=== PATIENT | male | born 1960 | race Caucasian/White ===

== ENCOUNTER 2023-04-29 09:17 | Day surgery (SDC) | payer OTHER, SELFPAY ==
--- NOTE | 2023-04-29 | PATH_ITS ---
[facility] Accession Number: [id number] No. of containers..05 Tissue . 01 Material submitted: . PART A: duodenum - DUODENAL BIOPSY PART B: esophagus - ESOPHAGEAL BIOPSY PART C: colon - RIGHT COLON PART D: colon - TRANSVERSE COLON PART E: colon - LEFT COLON . 01 Diagnosis: A. Duodenum, Biopsy: Duodenal mucosa with no diagnostic abnormality. Negative for active inflammation, features of sprue, dysplasia, or malignancy. . B. Esophagus, Biopsy: Squamcolumnar junctional mucosa with chronic active inflammation, consistent with reflux esophagitis. Negative for intestinal metaplasia by alcian blue stain. Negative for dysplasia and malignancy. . C. Right Colon, Biopsy: Colonic mucosa with no diagnostic abnormality. Negative for active, chronic, and microscopic colitis. Negative for dysplasia and malignancy. . D. Transverse Colon, Biopsy: Minimally active colitis. Negative for granulomas, dysplasia, and malignancy. . E. Left Colon, Biopsy: Mild distortion of the crypt architecture without active inflammation. Negative for granulomas, dysplasia, and malignancy. . . . [facility] 05/07/2023 1615 Local . 01 Comment: C-E. The morphologic appearance could be compatible with the provided clinical history of ulcerative colitis if infection and medication-related mucosal injury are excluded. . . 01 Electronically signed: . Laurie Dominguez MD, Pathologist NPI- [id number] . 01 Gross description: . Part A: DUODENAL BIOPSY: Received in formalin are 2 fragment(s) of mcmahan, soft tissue measuring 0.1 x 0.1 x 0.1 cm to 0.3 x 0.3 x 0.2 cm submitted entirely in 1 cassette(s) Part B: ESOPHAGEAL BIOPSY: Received in formalin are 1 fragment(s) of mcmahan, soft tissue measuring 0.1 x 0.1 x 0.1 cm to 0.3 x 0.3 x 0.2 cm submitted entirely in 1 cassette(s) Part C: RIGHT COLON: Received in formalin are 2 fragment(s) of mcmahan, soft tissue measuring 0.1 x 0.1 x 0.1 cm to 0.5 x 0.2 x 0.2 cm submitted entirely in 1 cassette(s) Part D: TRANSVERSE COLON: Received in formalin are multiple fragment(s) of mcmahan, soft tissue measuring 0.1 x 0.1 x 0.1 cm to 0.3 x 0.2 x 0.2 cm submitted entirely in 1 cassette(s) Part E: LEFT COLON: Received in formalin are multiple fragment(s) of mcmahan, soft tissue measuring 0.1 x 0.1 x 0.1 cm to 0.4 x 0.2 x 0.2 cm submitted entirely in 1 cassette(s) /JEREMY 05/04/2023 2304 Local . 01 Microscopic: . B. An AB/PAS stain is performed to evaluate for intestinal metaplasia and is negative. The control stain showed appropriate reactivity. . 01 Pathologist provided ICD-10: K50.10, R10.13 . 01 CPT . 444943, 407219, 571236, 905317, 111163, 070639 Specimen Comment: A courtesy copy of this report has been sent to [phone] Performed at: 01 [facility] [address] [place] [address], [place], [place] [id number] MD Blue Goodwin MD Phone: [phone]
[2023-04-29 09:40] VITALS: BMI 29.5
[2023-04-29 09:51] VITALS: BP 141/86; PULSE 71; RESP 12; TEMP 36.3; O2SAT 97
[2023-04-29] MEDS: LACTATED RINGERS 1,000 ML 42 ML IV (09:59)
[2023-04-29 10:19] LABS: COVID19 -Nasal RAPID Negative (Negative)
--- NOTE | 2023-04-29 11:59 | PM.OP.EC ---
Operative Date/Time/Diagnoses Date of procedure: 04/29/23 Pre-op diagnosis: See indication and findings Procedure & Clinicians Study performed: EGD and colonoscopy Indications: GE reflux, known Crohn's disease with loose stools on Lialda need for surveillance Surgeon: Marisela Cotton Procedure Notes Procedure in detail: After informed consent was obtained the patient was placed in left lateral decubitus position. The video upper scope was placed into the oropharynx and with the patient's help swelled into the esophagus. The esophagus stomach and duodenum were carefully examined. On withdrawal, retroflexed view the GE junction was performed. The scope was removed. The patient tolerated procedure well. The patient was then turned to the colonoscope substituted. Preparation was good. Disease easily passed the cecum. The IC valve was identified and intubated. On slow withdrawal mucosa was carefully examined. The scope was removed. The patient tolerated the procedure well. Blood loss none Complications none Sedation mac Findings EGD 1. Two small tongues of tissue just about a cm each at the GE junction between 39 and 40 cm. Biopsies taken of the each to rule out short-segment Barretts 2. No evidence for esophagitis 3. Normal stomach 4. Normal duodenal bulb and sweep. Biopsies taken recommendations however patient did not stop gluten prior to the procedure. Colonoscopy 1. Normal terminal ileum other than bit of focal erythema 2. Diffusely patchy erythematous colon without any obvious erosions or ulcers. Biopsies taken 2 every 10 cm and placed in 3 bottles, right, transverse, and left. Will be in touch about biopsies. If esophageal biopsies are positive he will need follow-up EGD in 3 years. Colonoscopy will probably be repeated in 2 years.
[2023-04-29 12:20] VITALS: BP 101/66; PULSE 80; RESP 11; TEMP 36.4; O2SAT 96
[2023-04-29 12:25] VITALS: BP 114/62; PULSE 68; RESP 17; O2SAT 97
[2023-04-29 12:30] VITALS: BP 105/56; PULSE 74; RESP 15; O2SAT 96
[2023-04-29 12:40] VITALS: BP 120/66; PULSE 72; RESP 15; TEMP 36.6; O2SAT 98
== END 2023-04-29 12:55 | disposition home or self-care (01) ==
PROVIDERS: PCP Family Medicine; Referring Provider Internal Medicine Gastroenterology; Visit Provider Internal Medicine Gastroenterology
PROC: 0DJ08ZZ Inspection of Upper Intestinal Tract, Via Natural or Artificial Opening Endoscopic (ICD-10-PCS; CPT 43235; principal; 2023-04-29 10:30)
PROC: 0DJD8ZZ Inspection of Lower Intestinal Tract, Via Natural or Artificial Opening Endoscopic (ICD-10-PCS; CPT 45378; 2023-04-29 10:30)
DX: K21.9 Gastro-esophageal reflux disease without esophagitis (principal); K50.10 Crohn's disease of large intestine without complications; K50.90 Crohn's disease, unspecified, without complications
CPT/HCPCS: 45380; 43239; 87635; J2704